=== PATIENT | male | born 1990 | race Caucasian/White ===

== ENCOUNTER 2019-01-21 11:22 | Emergency (ER) | payer OTHER ==
[2019-01-21 11:37] VITALS: BP 126/71
--- NOTE | 2019-01-21 11:51 | UC ---
Skin Complaint HPI - HPI Summary HPI Summary: 28 y/o male presents to the urgent care c/o a painful cyst in the medial aspect of the left upper arm for the past 4 days. He has noticed for the past 8 months an ingrown hair has gotten infected on and off, but never this big. His dog jumped up and landed in this area about 2 days ago and it began to get large w/ a surrounded red rash around it. No streaking. Pain is 4/10 constant w/o any radiation or streaking. At touch pain is 6/10. He has not taken any medication or applied any topical cream. Pt denies fever, chills, drug abuse, Hx of MRSA, SOB, HOWARD dizziness, chest pain, numbness or tingling sensation over the left arm , abdominal pain, N/V/d, or elbow pain. He can move left elbow and arm w/o any difficulty. - History of Current Complaint Chief Complaint: UCSkin Time Seen by Provider: 01/21/19 11:50 Stated Complaint: CYST ON ARM Hx Obtained From: Patient Onset/Duration: Gradual Onset, Lasting Days - 4 days, Still Present, Worse Since - today w/ a red rash around cyst Skin Exposure Onset/Duration: Weeks Ago - 8 months ago w/ an ingrown infected hair Timing: Constant Onset Severity: Mild Current Severity: Moderate Pain Intensity: 4 - 6/10 at touch Pain Scale Used: 0-10 Numeric Location: Discrete - distal medial aspect of the left upper arm Character: Swelling, Redness, Raised, Painful Aggravating Factor(s): Touch Alleviating Factor(s): Nothing Associated Signs & Symptoms: Positive: Rash - infected painful cyst w/ a red rash around in his left upper arm, Tenderness. Negative: Fever, Cough, Drainage Related History: Other: - ingrown hair - Allergy/Home Medications Allergies/Adverse Reactions: Allergies Allergy/AdvReac Type Severity Reaction Status Date / Time No Known Allergies Allergy Verified 01/21/19 11:37 PMH/Surg Hx/FS Hx/Imm Hx Previously Healthy: Yes - Pt denies PMHX - Surgical History Surgical History: None - Family History Known Family History: Positive: None - Pt denies FMHX - Social History Occupation: Employed Full-time Lives: With Family Alcohol Use: Daily Substance Use Type: None Smoking Status (MU): Smoker, Current Status Unknown Type: Cigars - Immunization History Vaccination Up to Date: Yes Review of Systems All Other Systems Reviewed And Are Negative: Yes Constitutional: Positive: Negative Skin: Positive: Rash - infected painful cyst w/ a red rash around in his left upper arm Eyes: Positive: Negative ENT: Positive: Negative Respiratory: Positive: Negative Cardiovascular: Positive: Negative Gastrointestinal: Positive: Negative Genitourinary: Positive: Negative Motor: Positive: Negative Neurovascular: Positive: Negative Musculoskeletal: Positive: Negative Neurological: Positive: Negative Psychological: Positive: Negative Is Patient Immunocompromised?: No Physical Exam - Summary Physical Exam Summary: Vital Signs Reviewed: Yes General: well developed, well nourished male sitting in the examining table w/o any apparent distress Eye Exam: Normal Eyes: Positive: Conjunctiva Clear - PERRLA, EOMI, fundi grossly normal ENT: Positive: Normal ENT inspection, Hearing grossly normal, Pharynx normal, TMs normal Neck: Positive: Supple, Nontender, No Lymphadenopathy Respiratory: Positive: Chest non-tender, Lungs clear, Normal breath sounds, No respiratory distress Cardiovascular: Positive: RRR, No Murmur, Pulses Normal, Brisk Capillary Refill Abdomen Description: Positive: Nontender, No Organomegaly, Soft. Negative: CVA Tenderness (R), CVA Tenderness (L) Bowel Sounds: Positive: Present Musculoskeletal: Positive: Strength Intact, ROM Intact, No Edema Neurological: Positive: Alert, Muscle Tone Normal Psychological Exam: Normal Skin: Positive: Medial aspect of the left distal arm with a small erythematous pustule that is indurated and fluctuant, tender to palpation, swollen, and warm to touch about 2.0 x 2.0 cm in size. No involvement of elbow. FROM of left arm and left elbow, phalanx, sensation is intact, capillary refill WNL, reflexes WNL Triage Information Reviewed: Yes Vital Signs: Initial Vital Signs Temp 99.1 F 01/21/19 11:33 Pulse 67 01/21/19 11:33 Resp 18 01/21/19 11:33 BP 126/71 01/21/19 11:33 Pulse Ox 98 01/21/19 11:33 Course/Dx - Course Course Of Treatment: 28 y/o male presents to the urgent care c/o a painful cyst in the medial aspect of the left upper arm for the past 4 days. He has noticed for the past 8 months an ingrown hair has gotten infected on and off, but never this big. His dog jumped up and landed in this area about 2 days ago and it began to get large w/ a surrounded red rash around it. No streaking. Pain is 4/10 constant w/o any radiation or streaking. At touch pain is 6/10. He has not taken any medication or applied any topical cream. Pt denies fever, chills, drug abuse, Hx of MRSA, SOB, HOWARD dizziness, chest pain, numbness or tingling sensation over the left arm , abdominal pain, N/V/d, or elbow pain. He can move left elbow and arm w/o any difficulty. Hx obtained. Pt w/ an abscess on the medial aspect of the distal upper arm on examination. I&D of abscess procedure:The procedure was explained and consent obtained. [place] protocol performed. The wound was anesthetized with 3mL of Lido 1% with good anesthesia. Sterile drape and prep were done. The fluctuant center was incised with #11 blade scalpel. A moderate amount of bloody caseous material was expressed . wound cultures obtained and sent to lab top r/o MRSA. The wound was probed for loculated areas and irrigated with normal saline. The wound was packed loosely with wick or left open. Bacitracin topical ointment applied and wound covered with sterile dressing. The patient tolerated the procedure well. Pt Rx Bactrim PO, bacitracin oint and ibuprofen PO for pain. Advised to return to the urgent care for wound check up. Pt advised fever develops and pain increase despite ABX to go immediately to the ER for further management. Pt understood and agreed with D/C instructions. Left the clinic ambulating A&OX3. - Differential Diagnoses - Skin Complaint Differential Diagnoses: Abscess, Cellulitis, Contact Dermatitis, Lymphadenitis, MRSA, Tinea - Diagnoses Provider Diagnosis: Abscess of left arm Discharge ED - Sign-Out/Discharge Documenting (check all that apply): Patient Departure - D/C home All imaging exams completed and their final reports reviewed: No Studies - Discharge Plan Condition: Stable Disposition: HOME Prescriptions: Bacitracin OINTMENT* 1 applic TOPICAL BID #1 tube Ibuprofen TAB* [Motrin TAB* 800 MG] 800 mg PO Q6H PRN #30 tab PRN Reason: moderate pain Sulfamethox/Trimethoprim DS* [Bactrim DS 800/160 TAB*] 1 tab PO BID #14 tab Patient Education Materials: Abscess (ED) Forms: *Work Release Referrals: [facility] [Outside] - 2 Days Additional Instructions: 1-Please take full course of antibiotic to avoid resistance. Keep wound clean and dry with a sterile dressing. Apply bacitracin topical as directed 2- F/u wound check up in 2 days with your PCP or at the urgent care for removal of packing 3-. Take Ibuprofen PO q6-8hrs prn for pain or swelling. 4-If you develop fever or redness despite antibiotic please go to the ER immediately or return to the Urgent care. 5- Wound culture sent to lab, if any abnormal result you will receive a call from us. - Billing Disposition and Condition Condition: STABLE Disposition: Home
[2019-01-21] MEDS ORDERED: Lidocaine 1% MPF ** 5 ML VIAL INJ ONE (12:26)
== END 2019-01-21 13:21 | disposition home or self-care (01) ==
LOC: UCEAST 11:22
DX: L02.414 Cutaneous abscess of left upper limb (principal); F17.290 Nicotine dependence, other tobacco product, uncomplicated
CPT/HCPCS: 10060; 87070; 87205; 87640; 87641; 99202; G0463

== ENCOUNTER 2019-01-23 14:38 | Emergency (ER) | payer OTHER ==
[2019-01-23 15:02] VITALS: BP 114/65
--- NOTE | 2019-01-23 15:15 | UC ---
Skin Complaint HPI - HPI Summary HPI Summary: 28 yo male presents for wound check. He tells me that he was here 2 days ago and had an "ingrown hair" I&d'd to his left AC with packing placed. He was placed on Bactrim and wound culture was obtained. Wound culture grew normal stan. Pt changed the dressing daily and is here for a wound check. States that it hurts, but not as much as before. No fevers or streaking noted . - History of Current Complaint Chief Complaint: UCUpperExtremity Time Seen by Provider: 01/23/19 15:15 Stated Complaint: RECHECK ARM COMPLAINT Hx Obtained From: Patient Onset/Duration: Gradual Onset Onset Severity: Moderate Current Severity: Mild Pain Intensity: 3 Pain Scale Used: 0-10 Numeric - Allergy/Home Medications Allergies/Adverse Reactions: Allergies Allergy/AdvReac Type Severity Reaction Status Date / Time No Known Allergies Allergy Verified 01/23/19 15:02 PMH/Surg Hx/FS Hx/Imm Hx - Additional Past Medical History Additional PMH: None - Surgical History Surgical History: None - Family History Known Family History: Positive: None - Social History Occupation: Employed Full-time Lives: With Family Alcohol Use: Daily Substance Use Type: None Smoking Status (MU): Smoker, Current Status Unknown Type: Cigars - Immunization History Vaccination Up to Date: Yes Review of Systems All Other Systems Reviewed And Are Negative: No Constitutional: Positive: Negative Skin: Positive: Other - Abscess left AC Respiratory: Positive: Negative Cardiovascular: Positive: Negative Neurovascular: Positive: Negative Musculoskeletal: Positive: Negative Neurological: Positive: Negative Psychological: Positive: Negative Physical Exam - Summary Physical Exam Summary: GENERAL: NAD. WDWN. No pain distress. SKIN: LEFT AC with 3.5cm diameter area of erythema and fluctuant edema with central 4mm linear incision with packing in place. No active drainage or streaking. Mild TTP. NECK: Supple. Nontender. No lymphadenopathy. CHEST: No accessory muscle use. Breathing comfortably and in no distress. CV: Pulses intact. Cap refill <2seconds MSK: FROM at left elbow NEURO: Alert. PSYCH: Age appropriate behavior. Triage Information Reviewed: Yes Vital Signs: Initial Vital Signs Temp 98.8 F 01/23/19 14:57 Pulse 60 01/23/19 14:57 Resp 16 01/23/19 14:57 BP 114/65 01/23/19 14:57 Pulse Ox 98 01/23/19 14:57 Vital Signs Reviewed: Yes Course/Dx - Course Course Of Treatment: Packing was removed and, using manual pressure, copious brown purulent material was able to be expressed and fluctuant edema subsided. Pt's pain improved. Bandaged with ABD and coban and advised to continue antibiotic and daily dressing changes until well healed. Return for a wound check if he develops increased pain, swelling, or streaking to the area. ED for any fevers - Diagnoses Provider Diagnosis: Abscess Discharge ED - Sign-Out/Discharge Documenting (check all that apply): Patient Departure All imaging exams completed and their final reports reviewed: No Studies - Discharge Plan Condition: Stable Disposition: HOME Patient Education Materials: Abscess (ED) Referrals: No Primary Care Phys,NOPCP [Primary Care Provider] - Additional Instructions: If you develop a fever, shortness of breath, chest pain, new or worsening symptoms - please call your PCP or go to the ED immediately. Continue your antibiotic and change the dressing daily If you notice increase pain, redness, or swelling - please return for a recheck - Billing Disposition and Condition Condition: STABLE Disposition: Home
== END 2019-01-23 15:40 | disposition home or self-care (01) ==
LOC: UCEAST 14:38
DX: L02.414 Cutaneous abscess of left upper limb (principal); F17.290 Nicotine dependence, other tobacco product, uncomplicated
CPT/HCPCS: 99211; G0463